=== PATIENT | female | born 1990 | race Caucasian/White ===

== ENCOUNTER 2017-08-06 16:48 | Outpatient (CLI) | payer OTHER ==
[~2017-08-06] VITALS: Ht 167.6 cm; Wt 67.6 kg
[~2017-08-06 16:48] MED LIST: ENDOCET 5-3251 EACH PO; IBUPROFEN800 MG PO
[2017-08-06 17:19] VITALS: BP 125/81
[2017-08-06 17:42] VITALS: BP 118/57
[2017-08-06 17:58] VITALS: BP 119/62
[2017-08-06 18:03] LABS: ADD MIUA? YES; BILIRUBIN NEGATIVE; BLOOD NEGATIVE; COLOR YELLOW ((YELLOW)); GLUCOSE (STRIP) NEGATIVE; KETONES NEGATIVE; LEUKOCYTES SMALL; NITRITE NEGATIVE; PROTEIN (STRIP) NEGATIVE; SPECIFIC GRAVITY 1.019 (1.000-1.030); UROBILINOGEN 0.2 MG/DL (0.2-1.0)
[2017-08-06 18:04] LABS: HEMATOCRIT 30.8 % (36.0-46.0); MCHC 33.1 G/DL (30.0-36.0); MCV 93.6 FL (83-99); PLATELET COUNT 210 K/uL (156-360); RBC DIS.WIDTH-CV 11.9 % (11.8-14.6); RBC DIS.WIDTH-SD 40.6 % (39-53); RED BLOOD COUNT 3.29 M/uL (3.80-5.20); WHITE BLOOD COUNT 16.8 K/uL (4.1-10.2)
[2017-08-06 18:15] VITALS: BP 115/59
[2017-08-06 18:38] LABS: ABS NEUTROPHIL COUNT 11.6; ANISOCYTOSIS 1+; ATYPICAL LYMPHOCYTE 6.1 %; BAND NEUTROPHILS 6.1 % (0-8.0); EOSINOPHIL ABS CT 0; HYPOCHROMASIA 1+; INSTRUMENT ABS NEUTROPHIL CT 9.7 K/uL; LYMPHOCYTES 20.2 % (15.0-45.0); MICROCYTOSIS 1+; MYELOCYTES 2.6 %; PLAT.SUFFICIENCY ADEQUATE; POLYCHROMASIA 1+; SEG.NEUTROPHILS 63.2 % (46.0-76.0)
[2017-08-06 18:44] LABS: BACTERIA RARE /HPF; EPITHELIAL CELLS 1+ /HPF; HYALINE CASTS 0-5 /LPF; MUCUS 2+ /LPF; RED BLOOD CELLS 0-5 /HPF (0-5); UCUL ADDED? NO; WHITE BLOOD CELLS 0-5 /HPF (0-5)
[2017-08-06 18:57] LABS: DRSB INTERNAL CONTROL PASS; PROBE CHECK PASS; SPECIMEN PROCESSING CONTROL PASS
[2017-08-06 19:01] VITALS: BP 113/65
== END 2017-08-06 19:49 | disposition short-term general hospital (02) ==
LOC: LDRP-OP 16:48 → 2WEST 16:49 → LDRP-OP 11-02 12:45
PROVIDERS: Obstetrics & Gynecology
DX: O60.03 Preterm labor without delivery, third trimester (principal); O36.8930 Maternal care for other specified fetal problems, third trimester, not applicable or unspecified; Q79.2 Exomphalos; O09.213 Supervision of pregnancy with history of pre-term labor, third trimester; Z3A.31 31 weeks gestation of pregnancy
CPT/HCPCS: 81003; 85025; 87653; G0378; J0702; J2540; J3105; J3475; J7030; J7120

== ENCOUNTER 2017-08-29 15:17 | Outpatient (CLI) | payer OTHER ==
[2017-08-29 15:29] VITALS: BP 111/67
== END 2017-08-29 18:45 | disposition left against medical advice (07) ==
LOC: LDRP-OP 15:17 → 2WEST 15:18 → LDRP-OP 23:42
DX: O60.03 Preterm labor without delivery, third trimester (principal); O35.8XX0 Maternal care for other (suspected) fetal abnormality and damage, not applicable or unspecified; O99.343 Other mental disorders complicating pregnancy, third trimester; F41.9 Anxiety disorder, unspecified; O09.213 Supervision of pregnancy with history of pre-term labor, third trimester; Z82.49 Family history of ischemic heart disease and other diseases of the circulatory system; Z3A.34 34 weeks gestation of pregnancy
CPT/HCPCS: 85025; G0378